=== PATIENT | female | born 1985 | race Caucasian/White ===

== ENCOUNTER 2023-09-16 17:26 | Emergency (ER) | payer BC, OTHER ==
[2023-09-16 17:47] VITALS: TEMP 96.7
[2023-09-16] MEDS ORDERED: Zofran 4 MG/2 ML VIAL IV ONE (18:18)
[2023-09-16] MEDS ORDERED: TORAdol 30 mg Injection IV ONE (18:18)
[2023-09-16] MEDS ORDERED: Sodium Chloride 0.9% 1000 ML 1,000 ML IV STA (18:18)
[2023-09-16 18:26] LABS: Absolute Neutrophil Ct (ANC) 5.12 x10^3/uL (1.4-6.9); BASOPHIL % 0.5 % (0.0-0.4); Basophil (Absolute #) 0.04 x10^3/uL (0-0.4); Eosinophil % 1.1 % (0.00-5.0); Eosinophil (Absolute #) 0.09 x10^3/uL (0-0.5); Hematocrit 44.2 % (35-47); IMMATURE GRAN # 0.03 x10^3u/L (0.00-0.03); IMMATURE GRAN % 0.4 % (0.00-0.4); Lymphocyte (Absolute #) 2.24 x10^3/uL (1.0-4.6); Lymphocytes % 27.8 % (24.0-44.0); Mean Cell Volume 92.1 fL (78-100); Mean Corpuscular Hemoglobin 31.3 pg (26-32); Mean Corpuscular Hgb Concent. 33.9 g/dL (32-36); Mean Platelet Volume 10.9 fL (7.5-11.0); Monocyte (Absolute #) 0.53 x10^3/uL (0.0-1.3); Monocytes % 6.6 % (0.0-12.0); Neutrophil % 63.6 % (36.0-66.0); Platelet Count 322 x10^3/uL (150-450); Red Cell Distribution Width 11.9 % (11.5-14.0); White Blood Count 8.1 x10^3/uL (4.0-10.5)
[2023-09-16] MEDS ORDERED: Sodium Chloride 0.9% 1000 ML 1,000 ML ONE (18:29)
[2023-09-16] MEDS ORDERED: TORAdol 30 mg Injection ONE (18:29)
[2023-09-16] MEDS ORDERED: Zofran 4 MG/2 ML VIAL ONE (18:29)
[2023-09-16 18:32] LABS: ALBUMIN 4.7 g/dL (3.5-5.0); ANION GAP 13.8 MEQ/L (5-15); BILIRUBIN,TOTAL 0.7 mg/dL (0.2-1.3); Calcium 8.4 mg/dL (8.4-10.2); Creatinine 1 0.81 mg/dL (0.52-1.04); EST GLOMERULAR FILTRATION RATE 95.8 ML/MIN; Potassium 3.3 mmol/L (3.5-5.1)
--- NOTE | 2023-09-16 18:57 | ERPHSYRPT ---
- History of Present Illness Time Seen by Provider: 09/16/23 17:55 Source: patient Exam Limitations: no limitations Patient Subjective Stated Complaint: Pt c/o of vomiting, diarrhea, and a headache since Friday night Triage Nursing Assessment: Pt was brought to the ER by her father, vitals wnl, rates head pain as 3/10, pulses normal, diaphoretic, can't keep anything down, dizzy and feels like she is going to pass out, feels dehydrated, weak Physician History: 38-year-old female presents to our ED for evaluation of nausea and vomiting for approximately 5 days to a week. Patient states she is unable to tolerate p.o. Patient complains of diarrhea as well. She is experiencing a mild frontal headache rated 3 out of 10. No neck pain no fever no photophobia. no meningeal signs. Symptoms are constant. Symptoms are moderate in intensity. No specific worsening or improving factors. Patient voices no other complaints or concerns at this time. Portions of this note were created with voice recognition technology. There may be grammatical, spelling, punctuation or sound alike errors Timing/Duration: today Severity: moderate Modifying Factors: Improves With: nothing Associated Symptoms: headaches Allergies/Adverse Reactions: No Known Drug Allergies Allergy (Verified 09/16/23 17:48) Home Medications: Verapamil HCl [Verapamil ER] 120 mg PO DAILY 03/26/15 [History] Aripiprazole 10 mg [Abilify 10 MG] 10 mg PO DAILY 09/16/23 [History] Clonidine HCl 0.1 mg [Clonidine 0.1 mg Tablet] 0.2 mg PO BID 09/16/23 [History] Dextroamphetamine/Amphetamine [Dextroamp-Amphetamin 30 mg Tab] 30 mg PO BID 09/16/23 [History] Fluoxetine HCl [Prozac] 40 mg PO DAILY 09/16/23 [History] Omeprazole 20 mg PO DAILY 09/16/23 [History] Rimegepant Sulfate [Nurtec Odt] 75 mg PO UD PRN 09/16/23 [History] Trazodone HCl 50 mg [Desyrel 50 mg] 50 mg PO HS 09/16/23 [History] hydrOXYzine pamoate [Vistaril] 10 mg PO BID 01/23/24 [History] Hx Tetanus, Diphtheria Vaccination/Date Given: Yes Hx Influenza Vaccination/Date Given: No Hx Pneumococcal Vaccination/Date Given: No Travel Risk - International Travel Have you traveled outside of the country in past 3 weeks: No - Coronavirus Screening Are you exhibiting any of the following symptoms?: Yes Symptoms: Vomiting/Diarrhea, Headaches/Body Aches/Fatigue Close contact with a COVID-19 positive Pt in past 14-21 Days: No - Vaccine Status Have you recieved a Covid-19 vaccination: Yes 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 - Vaccination Dates Date of 2cond Vaccination (if applicable): 2020 - Review of Systems Constitutional: No Symptoms, No Fever, No Chills Eyes: No Symptoms Ears, Nose, & Throat: No Symptoms Respiratory: No Symptoms, No Cough, No Dyspnea Cardiac: No Symptoms, No Chest Pain, No Edema, No Syncope Abdominal/Gastrointestinal: No Symptoms, No Abdominal Pain, No Nausea, No Vomiting, No Diarrhea Genitourinary Symptoms: No Symptoms, No Dysuria Musculoskeletal: No Symptoms, No Back Pain, No Neck Pain Skin: No Symptoms, No Rash Neurological: No Symptoms, No Dizziness, No Focal Weakness, No Sensory Changes Psychological: No Symptoms Endocrine: No Symptoms Hematologic/Lymphatic: No Symptoms Immunological/Allergic: No Symptoms All Other Systems: Reviewed and Negative - Past Medical History Pertinent Past Medical History: Yes Neurological History: Migraines ENT History: Other Cardiac History: No Pertinent History Respiratory History: No Pertinent History Endocrine Medical History: No Pertinent History Musculoskeletal History: No Pertinent History GI Medical History: GERD, Hernia History: Other Psycho-Social History: Anxiety, Depression Female Reproductive Disorders: No Pertinent History Other Medical History: POLYCYSTIC KIDNEY AND LIVER DISEASE (PER PATIENT,[facility])HX OF OF MULTIPLE KIDNEY STONES REMOVED VIA LITHROTRIPSY - Past Surgical History Past Surgical History: Yes Neuro Surgical History: No Pertinent History Gastrointestinal: Cholecystectomy Other Surgical History: BREAST IMPLANTS 2009, WISDOME TEETH 2010, LITHROTRIPSY,. MOUTH SURGERY 4 DAYS AGO UNDER CONSCIOUS SEDATION - Social History Smoking Status: Never smoker Exposure to second hand smoke: No Drug Use: none Patient Lives Alone: No - Female History Hx Last Menstrual Period: 5 years ago Hx Now: No (IUD) - Nursing Vital Signs Nursing Vital Signs: Initial Vital Signs Temperature 96.7 F 09/16/23 17:38 Pulse Rate 77 09/16/23 17:38 Blood Pressure 126/90 09/16/23 17:38 O2 Sat by Pulse Oximetry 99 09/16/23 17:38 Pain Scale Pain Intensity 3 - Physical Exam General Appearance: no apparent distress, alert Eye Exam: PERRL/EOMI, eyes nml inspection Ears, Nose, Throat Exam: normal ENT inspection, TMs normal, pharynx normal, moist mucous membranes Neck Exam: normal inspection, non-tender, supple, full range of motion Respiratory Exam: normal breath sounds, lungs clear, airway intact, No respira tory distress Cardiovascular Exam: regular rate/rhythm, normal heart sounds, normal peripheral pulses Gastrointestinal/Abdomen Exam: soft, normal bowel sounds, No tenderness, No mass Back Exam: normal inspection, normal range of motion, No CVA tenderness, No vertebral tenderness Extremity Exam: normal inspection, normal range of motion, pelvis stable Neurologic Exam: alert, oriented x 3, cooperative, normal mood/affect, nml cerebellar function, nml station & gait, sensation nml, No motor deficits Skin Exam: normal color, warm, dry, No rash Lymphatic Exam: No adenopathy SpO2 Interpretation: normal SpO2: 97 O2 Delivery: Room Air - Course Nursing assessment & vital signs reviewed: Yes Ordered Tests: Active Orders 24 hr Category Date Time Status IV Insertion STAT Care 09/16/23 18:18 Active CBC W DIFF Stat Lab 09/16/23 17:40 Completed CMP Stat Lab 09/16/23 17:40 Completed HCG QUALITATIVE, URINE Stat Lab 09/16/23 Ordered TROPONIN Q4H Lab 09/16/23 17:40 Completed TROPONIN Q4H Lab 09/16/23 22:30 Ordered TROPONIN Q4H Lab 09/17/23 02:30 Ordered UA W/RFX UR CULTURE Stat Lab 09/16/23 18:19 Ordered Medication Summary Discontinued Medications Generic Name Dose Route Start Last Admin Trade Name Freq PRN Reason Stop Dose Admin Sodium Chloride 1,000 mls @ 999 mls/hr 09/16/23 18:18 09/16/23 19:55 Sodium Chloride 0.9% 1000 Ml IV 09/16/23 19:18 Infused .Q1H1M STA Infusion Sodium Chloride Confirm 09/16/23 18:29 Sodium Chloride 0.9% 1000 Ml Administered 09/16/23 18:30 Dose 1,000 mls @ ud .ROUTE .STK-MED ONE Ketorolac Tromethamine 30 mg 09/16/23 18:18 09/16/23 18:32 Ketorolac Tromethamine 30 Mg/Ml Inj IV 09/16/23 18:19 30 mg STAT ONE Administration Ketorolac Tromethamine Confirm 09/16/23 18:29 Ketorolac Tromethamine 30 Mg/Ml Inj Administered 09/16/23 18:30 Dose 30 mg .ROUTE .STK-MED ONE Ondansetron HCl 4 mg 09/16/23 18:18 09/16/23 18:32 Ondansetron Hcl 4 Mg/2 Ml Vial IV 09/16/23 18:19 4 mg STAT ONE Administration Ondansetron HCl Confirm 09/16/23 18:29 Ondansetron Hcl 4 Mg/2 Ml Vial Administered 09/16/23 18:30 Dose 4 mg .ROUTE .STK-MED ONE Potassium Chloride 40 meq 09/16/23 20:08 09/16/23 20:13 Potassium Chloride Tab 10 Meq Tab PO 09/16/23 20:09 40 meq STAT ONE Administration Lab/Rad Data: Laboratory Result Diagrams 09/16/23 17:40 09/16/23 17:40 Laboratory Results 09/16/23 09/16/23 09/16/23 Range/Units 17:40 17:40 17:40 WBC 8.1 (4.0-10.5) x10^3/uL RBC 4.80 (4.1-5.4) x10^6/uL Hgb 15.0 (12.0-16.0) g/dL Hct 44.2 (35-47) % MCV 92.1 (78-100) fL MCH 31.3 (26-32) pg MCHC 33.9 (32-36) g/dL RDW 11.9 (11.5-14.0) % Plt Count 322 (150-450) x10^3/uL MPV 10.9 (7.5-11.0) fL Gran % 63.6 (36.0-66.0) % Immature Gran % (Auto) 0.4 (0.00-0.4) % Nucleat RBC Rel Count 0.0 (0.00-0.1) % Eos # (Auto) 0.09 (0-0.5) x10^3/uL Immature Gran # (Auto) 0.03 (0.00-0.03) x10^3u/L Absolute Lymphs (auto) 2.24 (1.0-4.6) x10^3/uL Absolute Monos (auto) 0.53 (0.0-1.3) x10^3/uL Absolute Nucleated RBC 0.00 (0.00-0.01) x10^3u/L Lymphocytes % 27.8 (24.0-44.0) % Monocytes % 6.6 (0.0-12.0) % Eosinophils % 1.1 (0.00-5.0) % Basophils % 0.5 (0.0-0.4) % Absolute Granulocytes 5.12 (1.4-6.9) x10^3/uL Basophils # 0.04 (0-0.4) x10^3/uL Sodium 135 L (137-145) mmol/L Potassium 3.3 L (3.5-5.1) mmol/L Chloride 103 (98-107) mmol/L Carbon Dioxide 22 (22-30) mmol/L Anion Gap 13.8 (5-15) MEQ/L BUN 18 H (7-17) mg/dL Creatinine 0.81 (0.52-1.04) mg/dL Estimated GFR 95.8 ML/MIN Glucose 98 (74-106) mg/dL Calcium 8.4 (8.4-10.2) mg/dL Total Bilirubin 0.70 (0.2-1.3) mg/dL AST 25 (14-36) U/L ALT 23 (0-35) U/L Alkaline Phosphatase 79 (38-126) U/L Troponin I < 0.012 (0.000-0.034) ng/mL Serum Total Protein 8.0 (6.3-8.2) g/dL Albumin 4.7 (3.5-5.0) g/dL - Progress Progress: improved Progress Note: 38-year-old female presents to our ED for evaluation of nausea vomiting and a headache. Workup reveals a mild hypokalemia. Oral potassium replacement administered. Patient received a liter of IV fluids Zofran and Toradol. Headache resolved. Patient feels much better she states he is ready to go home. Patient does not have urinary symptomology. UA not collected. Patient agrees to follow-up with her primary care doctor within 48 hours for reevaluation. Portions of this note were created with voice recognition technology. There may be grammatical, spelling, punctuation or sound alike errors Complexity of problem addressed is moderate acute complicated No critical care time Complex of data reviewed and analyzed is moderate. Test ordered test reviewed. Results analyzed and correlated clinically. Risk of complication and or risk of morbidity/mortality of patient management is moderate. Vital stable. Time spent to discharge patient approximately 15 minutes. Plan of care established for shared decision making. No social determinants of health present impede follow-up. Portions of this note were created with voice recognition technology. There may be grammatical, spelling, punctuation or sound alike error 09/16/23 20:16 Counseled pt/family regarding: lab results, diagnosis, need for follow-up - Departure Departure Disposition: Home Clinical Impression: Nausea & vomiting, Hyponatremia Condition: Stable Critical Care Time: No Referrals: LOLA TOLBERT MANAGER DISCOVERY [Primary Care Provider] - Follow up/PCP as directed Additional Instructions: Discharge/Care Plan DEANDRA LORENZANA was seen on 09/16/23 in the Emergency Room. The patient was counseled regarding Diagnosis,Lab results, Imaging studies, need for follow up and when to return to the Emergency Room. Prescriptions given: Discharge Note I have spoken with the patient and/or caregivers. I have explained the patient's condition, diagnosis and treatment plan based on the information available to me at this time. I have answered the patient's and/or caregiver's questions and addressed any concerns. The patient and/or caregivers have as good understanding of the patient's diagnosis, condition and treatment plan as can be expected at this point. The vital signs have been stable. The patient's condition is stable and appropriate for discharge from the emergency department. The patient will pursue further outpatient evaluation with the primary care physician or other designated or consulting physician as outlined in the discharge instructions. The patient and/or caregivers are agreeable to this plan of care and follow-up instructions have been explained in detail. The patient and/or caregivers have received these instruction. The patient/and or caregivers are aware that any significant change in condition or worsening of symptoms should prompt an immediate return to this or the closest emergency department or call 911.
[2023-09-16 19:38] VITALS: RESP 16
[2023-09-16 20:07] VITALS: BP 123/88; PULSE 71
[2023-09-16] MEDS ORDERED: Klor Con PO ONE (20:08)
[2023-09-16] MEDS ORDERED: Klor Con ONE (20:11)
[2023-09-16 20:12] VITALS: O2SAT 97
== END 2023-09-16 20:25 | disposition home or self-care (01) ==
LOC: ED 17:26
DX: R11.2 Nausea with vomiting, unspecified (principal); E87.1 Hypo-osmolality and hyponatremia; R19.7 Diarrhea, unspecified; R51.9 Headache, unspecified; Z79.899 Other long term (current) drug therapy
CPT/HCPCS: 36415; 80053; 84484; 85025; 96360; 96374; 96375; 99284; J1885; J2405; A9270-GY

== ENCOUNTER 2024-04-28 05:35 | Emergency (ER) | payer OTHER ==
[2024-04-28 06:10] VITALS: TEMP 97.2
--- NOTE | 2024-04-28 06:36 | ERPHSYRPT ---
- History of Present Illness Time Seen by Provider: 04/28/24 06:20 Source: patient Exam Limitations: no limitations Patient Subjective Stated Complaint: pt states she has a migraine different from her typical migraine. pain today is behind her rt eye and previously has always been behind her lt eye. pain is worse with this migraine and not resolving with meidcation like normal. Triage Nursing Assessment: pt alert and oriented. answers questions approp, pt ambulated to room with steady gait noted. respirations nonlabored, skin warm and dry. pt moves all exptremities without diff. pupils equal and reactive. pt reports "strange feeling " in the rt side of her face. states sensation normal. Physician History: 38-year-old female history of migraine presents to our ED with migraine-like symptoms. However patient states the symptomology today is somewhat different than her usual symptoms. Patient's migraine typically involves the area behind her left eye. Today the area behind her right eye is involved. Patient has an unusual sensation to the right side of her face. No aurelio numbness or weakness. No trauma no fever. Patient states the headache did not resolve with her usual cocktail of Tylenol and Motrin. Headache started today while she was at work. Patient reports she is a nurse. No nausea vomiting or diaphoresis. Symptoms are mild to moderate in intensity. Patient is experiencing light and sound sensitivity which is typical of her migraines. No systemic manifestation otherwise. No focal or lateralizing symptoms otherwise. Patient voices no other complaints or concerns at this time. Portions of this note were created with voice recognition technology. There may be grammatical, spelling, punctuation or sound alike errors Severity: moderate Modifying Factors: Improves With: nothing Associated Symptoms: denies symptoms Allergies/Adverse Reactions: No Known Drug Allergies Allergy (Verified 04/28/24 06:12) Home Medications: Verapamil HCl [Verapamil ER] 120 mg PO DAILY 03/26/15 [History] Aripiprazole 10 mg [Abilify 10 MG] 10 mg PO DAILY 09/16/23 [History] Clonidine HCl 0.1 mg [Clonidine 0.1 mg Tablet] 0.2 mg PO BID PRN 09/16/23 [History] Dextroamphetamine/Amphetamine [Dextroamp-Amphetamin 30 mg Tab] 30 mg PO BID 09/16/23 [History] Fluoxetine HCl [Prozac] 40 mg PO DAILY 09/16/23 [History] Omeprazole 20 mg PO DAILY 09/16/23 [History] Rimegepant Sulfate [Nurtec Odt] 75 mg PO UD PRN 09/16/23 [History] Trazodone HCl 50 mg [Desyrel 50 mg] 50 mg PO HS PRN PRN 09/16/23 [History] hydrOXYzine pamoate [Vistaril] 10 mg PO BID PRN 09/16/23 [History] Atogepant [Qulipta] 60 mg PO HS 04/28/24 [History] Hx Tetanus, Diphtheria Vaccination/Date Given: Yes Hx Influenza Vaccination/Date Given: No Hx Pneumococcal Vaccination/Date Given: No Immunizations Up to Date: Yes Travel Risk - International Travel Have you traveled outside of the country in past 3 weeks: No - Emerging Infectious Disease Are you exhibiting symptoms associated with any current EIDs: No - Review of Systems Constitutional: No Symptoms, No Fever, No Chills Eyes: No Symptoms Ears, Nose, & Throat: No Symptoms Respiratory: No Symptoms, No Cough, No Dyspnea Cardiac: No Symptoms, No Chest Pain, No Edema, No Syncope Abdominal/Gastrointestinal: No Symptoms, No Abdominal Pain, No Nausea, No Vomiti ng, No Diarrhea Genitourinary Symptoms: No Symptoms, No Dysuria Musculoskeletal: No Symptoms, No Back Pain, No Neck Pain Skin: No Symptoms, No Rash Neurological: No Symptoms, No Dizziness, No Focal Weakness, No Sensory Changes Psychological: No Symptoms Endocrine: No Symptoms Hematologic/Lymphatic: No Symptoms Immunological/Allergic: No Symptoms All Other Systems: Reviewed and Negative - Past Medical History Pertinent Past Medical History: Yes Neurological History: Migraines ENT History: Other Cardiac History: No Pertinent History Respiratory History: No Pertinent History Endocrine Medical History: No Pertinent History Musculoskeletal History: No Pertinent History GI Medical History: GERD, Hernia History: Other Psycho-Social History: Anxiety, Depression Female Reproductive Disorders: No Pertinent History Other Medical History: POLYCYSTIC KIDNEY AND LIVER DISEASE (PER PATIENT,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 MOUTH SURGERY - Female History Hx Last Menstrual Period: 6 yrs-iud Hx Now: No - Social History Smoking Status: Former smoker Exposure to second hand smoke: No Drug Use: marijuana Patient Lives Alone: No - Social Determinants of Health In the past 12 months,have you had to go without utilities?: No Transportation Issues: No Has anyone in your support network made you feel unsafe?: No Have you or anyone in your house had to go without enough: No - Nursing Vital Signs Nursing Vital Signs: Initial Vital Signs Temperature 97.2 F 04/28/24 05:55 Pulse Rate 86 04/28/24 05:55 Respiratory Rate 16 04/28/24 05:55 Blood Pressure 137/86 04/28/24 05:55 O2 Sat by Pulse Oximetry 100 04/28/24 05:55 Pain Scale Pain Intensity 10 - Physical Exam General Appearance: no apparent distress, alert Eye Exam: PERRL/EOMI, eyes nml inspection Ears, Nose, Throat Exam: normal ENT inspection, TMs normal, pharynx normal, moist mucous membranes Neck Exam: normal inspection, non-tender, supple, full range of motion Respiratory Exam: normal breath sounds, lungs clear, airway intact, No respiratory distress Cardiovascular Exam: regular rate/rhythm, normal heart sounds, normal peripheral pulses Gastrointestinal/Abdomen Exam: soft, normal bowel sounds, No tenderness, No mass Back Exam: normal inspection, normal range of motion, No CVA tenderness, No vertebral tenderness Extremity Exam: normal inspection, normal range of motion, pelvis stable Neurologic Exam: alert, oriented x 3, cooperative, 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, normal mood/affect, nml cerebellar function, nml station & gait, sensation nml, No motor deficits Skin Exam: normal color, warm, dry, No rash Lymphatic Exam: No adenopathy SpO2 Interpretation: normal SpO2: 100 O2 Delivery: Room Air - Course Nursing assessment & vital signs reviewed: Yes - CT Exams Head CT Interpretation: Tele-radiologist Report (No acute intracranial pathology observed) Ordered Tests: Active Orders 24 hr Category Date Time Status Veneer Stock Grader STAT Care 04/28/24 06:28 Ordered IV Insertion STAT Care 04/28/24 06:28 Ordered Pulse Oximetry (ED) STAT Care 04/28/24 06:28 Ordered HEAD WITHOUT CONTRAST [CT] Stat Exams 04/28/24 06:04 Taken CBC W DIFF Stat Lab 04/28/24 06:28 Ordered CMP Stat Lab 04/28/24 06:28 Ordered Medication Summary Generic Name Dose Route Start Last Admin Trade Name Freq PRN Reason Stop Dose Admin Sodium Chloride 1,000 mls @ 999 mls/hr 04/28/24 06:28 Sodium Chloride 0.9% 1000 Ml IV 04/28/24 07:28 .Q1H1M STA Discontinued Medications Generic Name Dose Route Start Last Admin Trade Name Freq PRN Reason Stop Dose Admin Diphenhydramine HCl 25 mg 04/28/24 06:28 Diphenhydramine Hcl 50 Mg/Ml Vial IV 04/28/24 06:29 STAT ONE Ketorolac Tromethamine 30 mg 04/28/24 06:28 Ketorolac Tromethamine 30 Mg/Ml Inj IV 04/28/24 06:29 STAT ONE Prochlorperazine Edisylate 10 mg 04/28/24 06:28 Prochlorperazine Edisylate 10 Mg/2 Ml Vial IV 04/28/24 06:29 STAT ONE - Progress Progress: improved Progress Note: 38-year-old female presents to our ED for evaluation of a migraine headache. Patient states the migraine headache was somewhat different from her usual migraine. Patient reports that symptoms are on the opposite side of the head a nd did not respond to the typical home medical management. Physical exam was nonremarkable. No focal or lateralizing symptoms. CT head negative for acute intracranial pathology. Lab workup pending. Treatment cocktail rendered. It is currently the change of shift. Patient will be endorsed to Dr. Benavidez at approximately [address] Benavidez will observe pending studies and make final disposition. Portions of this note were created with voice recognition technology. There may be grammatical, spelling, punctuation or sound alike errors Complexity problem addressed is moderate acute complicated. No critical care time. Complex of data reviewed and analyzed is moderate. Test ordered test reviewed results analyzed and correlated clinically with history and physical exam. Risk of complication or risk of morbidity/mortality patient management is low. Vital stable. Time spent to discharge patient approximately 20 minutes. Plan of care established for shared decision making. No social determinants of health present impede follow-up. Portions of this note were created with voice recognition technology. There may be grammatical, spelling, punctuation or sound alike errors 04/28/24 06:39 Counseled pt/family regarding: lab results, diagnosis, need for follow-up, rad results - Departure Departure Disposition: Observation Clinical Impression: Migraine Condition: Stable Critical Care Time: No Referrals: LOLA TOLBERT NP [Primary Care Provider] - Follow up/PCP as directed Additional Instructions: Discharge/Care Plan DEANDRA LORENZANA was seen on 04/28/24 in the Emergency Room. The patient was counseled regarding Diagnosis,Lab results, Imaging studies, need for follow up and when to return to the Emergency Room. Prescriptions given: Discharge Note I have spoken with the patient and/or caregivers. I have explained the patient's condition, diagnosis and treatment plan based on the information available to me at this time. I have answered the patient's and/or caregiver's questions and addressed any concerns. The patient and/or caregivers have as good understanding of the patient's diagnosis, condition and treatment plan as can be expected at this point. The vital signs have been stable. The patient's condition is stable and appropriate for discharge from the emergency department. The patient will pursue further outpatient evaluation with the primary care physician or other designated or consulting physician as outlined in the discharge instructions. The patient and/or caregivers are agreeable to this plan of care and follow-up instructions have been explained in detail. The patient and/or caregivers have received these instruction. The patient/and or caregivers are aware that any significant change in condition or worsening of symptoms should prompt an immediate return to this or the closest emergency department or call 911.
--- NOTE | 2024-04-28 06:38 | XRAY ---
CLINICAL HISTORY: headache, rt side facial tingling COMPARISON: None. TECHNIQUE: Axial non-contrast CT scan of the brain was performed from the skull base to the high parietal region. One of the following dose reduction techniques were utilized for this exam: Automated exposure control, adjustment of the mA and/or kV according to patient size, use of iterative reconstruction. FINDINGS: Brain Parenchyma: Normal attenuation of the cerebral hemispheres, cerebellum, and brainstem. No evidence of established territorial infarct, hemorrhage, or mass effect. No abnormal areas of hypo- or hyperattenuation. Suggestion of empty sella. Ventricular System: Ventricles are normal in size and configuration. No evidence of hydrocephalus or ventricular enlargement. Subarachnoid Spaces: Normal sulci and cisterns. No evidence of subarachnoid hemorrhage or extra-axial fluid collections. Cerebellum and Brainstem: Normal size and signal. No masses, lesions, or areas of abnormal signal. Orbits: Normal appearance of the globes, optic nerves, and extraocular muscles. No evidence of orbital masses or abnormal signal. Sinuses: Mucosal thickening in the bilateral ethmoid and right sphenoid sinuses. Mastoid Air Cells: Clear mastoid air cells. No evidence of mastoiditis. Skull and Meninges: Normal skull morphology. No evidence of meningeal thickening. IMPRESSION: 1. No established territorial infarction or acute intracranial hemorrhage. MRI with DWI/ADC would be helpful for further evaluation if clinically indicated. 2. Suggestion of empty sella. 3. Mucosal thickening in the bilateral ethmoid and right sphenoid sinuses. [facility] ER was called at [phone] at 5:30 AM RING STRIKER, 04/28/[address] Brar was informed about the negative Stroke results. Electronically Signed by: Gustabo Coyne MD. (04/28/2024 06:34:09 EDT)
[2024-04-28] MEDS ORDERED: BENADRYL 50 MG/ML ONE (06:39)
[2024-04-28] MEDS ORDERED: TORAdol 30 mg Injection ONE (06:39)
[2024-04-28] MEDS ORDERED: Compazine 10 MG/2 ML ONE (06:40)
[2024-04-28] MEDS ORDERED: Sodium Chloride 0.9% 1000 ML 1,000 ML ONE (06:40)
[2024-04-28 06:41] LABS: Absolute Neutrophil Ct (ANC) 9.05 x10^3/uL (1.56-6.13); BASOPHIL % 0.4 % (0.1-1.2); Basophil (Absolute #) 0.04 x10^3/uL (0.01-0.08); Eosinophil % 0.6 % (0.7-5.8); Eosinophil (Absolute #) 0.06 x10^3/uL (0.04-0.36); Hematocrit 35.4 % (34.1-44.9); Hemoglobin 11.6 g/dL (11.2-15.7); IMMATURE GRAN # 0.06 x10^3u/L (0.001-0.031); IMMATURE GRAN % 0.6 % (0.001-0.429); Lymphocytes % 9.3 % (19.3-51.7); Mean Cell Volume 93.7 fL (79.4-94.8); Mean Corpuscular Hemoglobin 30.7 pg (25.6-32.2); Mean Corpuscular Hgb Concent. 32.8 g/dL (32.2-35.5); Mean Platelet Volume 9.8 fL (9.4-12.3); Monocytes % 5.6 % (4.7-12.5); Neutrophil % 83.5 % (34.0-71.1); Platelet Count 277 x10^3/uL (182-369); Red Blood Count 3.78 x10^6/uL (3.93-5.22); Red Cell Distribution Width 11.9 % (11.7-14.4); White Blood Count 10.8 x10^3/uL (3.98-10.04)
[2024-04-28] MEDS: Compazine 10 MG/2 ML IV ONE (06:47)
[2024-04-28] MEDS: Sodium Chloride 0.9% 1000 ML 1,000 ML IV STA (06:47)
[2024-04-28] MEDS: TORAdol 30 mg Injection IV ONE (06:48)
[2024-04-28] MEDS: BENADRYL 50 MG/ML IV ONE (06:48)
[2024-04-28 06:55] LABS: ALBUMIN 3.9 g/dL (3.5-5.0); ANION GAP 12.1 MEQ/L (5-15); BILIRUBIN,TOTAL 0.5 mg/dL (0.2-1.3); Calcium 8.9 mg/dL (8.4-10.2); Creatinine 1 0.73 mg/dL (0.52-1.04); EST GLOMERULAR FILTRATION RATE 108.6 ML/MIN; Potassium 3.4 mmol/L (3.5-5.1); Total Protein 7.1 g/dL (6.3-8.2)
[2024-04-28] MEDS ORDERED: Ativan 2 MG/1 ML VIAL ONE (07:52)
[2024-04-28] MEDS: Ativan 2 MG/1 ML VIAL IV ONE (07:53)
[2024-04-28 08:19] VITALS: BP 138/89; PULSE 90; RESP 18; O2SAT 99
== END 2024-04-28 08:20 | disposition home or self-care (01) ==
LOC: ED 05:35
DX: G43.909 Migraine, unspecified, not intractable, without status migrainosus (principal); Z79.899 Other long term (current) drug therapy
CPT/HCPCS: 36000; 36415; 70450; 80053; 85025; 94760; 96360; 96374; 99284; J1200; J1885; J2060